=== PATIENT | female | born 1945 | race African-American/Black ===

== ENCOUNTER 2016-10-21 10:49 | Inpatient (IN) | payer OTHER ==
[2016-10-14 17:21] LABS: HEMATOCRIT 37.2 % (36.0-48.0); HEMOGLOBIN 12.2 g/dL (12.0-16.0)
[2016-10-14 17:33] LABS: BUN (BLOOD UREA NITROGEN) 23 MG/DL (6-23); CHLORIDE, SERUM 107 MMOL/L (96-112); CO2 (CARBON DIOXIDE) 28 MMOL/L (24-34); CREATININE 1.56 MG/DL (0.55-1.02); GFR AFRICAN AMERICAN 38 ML/MIN (>=60); GFR NON AFRICAN AMERICAN 33 ML/MIN (>=60); GLUCOSE, SERUM 91 MG/DL (60-99); POTASSIUM, SERUM 3.8 MMOL/L (3.5-5.3); SODIUM, SERUM 138 MMOL/L (135-148)
--- NOTE | ~2016-10-21 | DS ---
Discharge Summary [facility] [address] [place]. [address] NAME: ASHOK PEDRO : 43 STATUS : DIS IN PAT#: [id number] AGE: 71 ADM/REG DATE : 10/21/16 MR#: [id number] REPORT SERV DATE: 11/02/16 DICTATED BY: ELSY DANIELLE DATE: 11/01/16 REPORT STATUS : Draft TRANSCRIBED BY: KASSIDY DATE: 11/01/16 Data Collection from hospitalization DISCHARGE DIAGNOSES: 1. Colon cancer. 2. Hypertension. 3. History of abdominal aortic aneurysm. 4. Chronic obstructive pulmonary disease. 5. Gastroesophageal reflux disease. 6. Chronic kidney disease. 7. History of breast cancer. 8. History of stroke. 9. Former smoker. CONSULTATIONS: None. PROCEDURES PERFORMED: Laparoscopic-assisted right hemicolectomy with stapled ileocolic anastomosis on 10/21/2016. PATHOLOGY: Right colon resection including segment of terminal ileum and appendix - adenocarcinoma. MEDICATIONS: Tylenol 1000 mg every six hours, Norvasc 10 mg daily, Lipitor 20 mg daily, Dulcolax 10 mg at bedtime, Pepcid 40 mg daily, HydroDIURIL 25 mg daily, levothyroxine 150 mcg daily, Zestril 40 mg daily, Lopressor 50 mg daily, Percocet 5/325 one tablet every four hours as needed, Klor-Con 10 mEq daily, and Diovan 320 mg daily. CONDITION AT DISCHARGE: Stable. DISPOSITION: The patient was discharged home on a regular diet with activities as instructed. She would follow up with me on 11/11/2016. HOSPITAL COURSE: This is a 71-year-old female who had undergone a colonoscopy and was found to have a large 2.5 cm cecal mass with biopsy-proven cancer. Treatment options were discussed and it was elected to proceed with surgical intervention. She was admitted to the hospital at this time for further evaluation and treatment. Upon admission, she was taken to the operating room where she underwent the above-mentioned procedure. She tolerated this well, and there were no complications. On postop day #1, her abdomen was soft. The Zurita catheter was going to be removed. She did have some nausea overnight. On 10/23/2016, she seemed to be feeling better. She was ambulating and voiding. 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 Her diet was advanced. We encouraged her to ambulate and use pulmonary toilet. Discharge planning was performed. On 10/24/2016, she did have a bowel movement. She was passing flatus. She was ambulatory. Discharge instructions were given. Due to her improved and stable condition, she was discharged home with the above- stated instructions. Information collected by: Arabella Carvalho Discharge Summary [address] [address] NAME: ASHOK PEDRO : 43 STATUS : DIS IN PAT#: [id number] AGE: 71 ADM/REG DATE : 10/21/16 MR#: [id number] REPORT SERV DATE: 11/02/16 DICTATED BY: ELSY DANIELLE DATE: 11/01/16 REPORT STATUS : Draft TRANSCRIBED BY: KASSIDY DATE: 11/01/16 I submit the above information as my discharge summary. DIEGO/KASSIDY Renate Danielle M.D. / [id number] CC: Ivis Dietz M.D.
--- NOTE | ~2016-10-21 | OP ---
Record Of Operation [facility] [address] [place]. [address] NAME: ASHOK PEDRO : 43 STATUS : ADM IN PAT#: [id number] AGE: 71 ADM/REG DATE : 10/21/16 MR#: [id number] REPORT SERV DATE: 10/22/16 DICTATED BY: ELSY DANIELLE DATE: 10/22/16 REPORT STATUS : Draft TRANSCRIBED BY: MODL DATE: 10/22/16 DATE OF PROCEDURE: 10/21/2016 RESIDENT: Malik Harris MD PREOPERATIVE DIAGNOSIS: Cecal cancer. POSTOPERATIVE DIAGNOSIS: Cecal cancer. PROCEDURE: Laparoscopic-assisted right hemicolectomy with stapled ileocolic anastomosis. ANESTHESIA: General with TAP blocks. FLUIDS: Approximately 1500 of crystalloid. BLOOD LOSS: Approximately 20 mL. INDICATION FOR PROCEDURE: This is a 71-year-old female, who underwent colonoscopy and was found to have a large 2.5 cm cecal mass with biopsy-proven cancer. As psychiatric workup was negative, surgery was indicated. Risks, benefits, and alternatives were discussed at length with the patient, including bleeding, infection, and damage to surrounding structures. The patient wishes to proceed. DESCRIPTION OF PROCEDURE: After informed consent was obtained, the patient was brought back to the operating suite and placed in the supine position. The patient was prepped and draped in a normal sterile fashion after general endotracheal anesthesia. Time-out was performed, the patient was properly identified, preoperative antibiotics were given. A 1.2 cm umbilical incision was made. Blunt dissection was carried down to the fascia. There was a small fascial defect near the umbilicus, a Yesika clamp was placed in the abdomen. The abdomen was then entered bluntly. A 12 mm trocar was then placed within that and that was insufflated. The patient tolerated the insufflation well. The laparoscope was then placed within the trocar. There was no damage to bowel or bladder. Three more trocars were placed, one in the left upper quadrant, one in the right upper quadrant, and one in the lower quadrant in the midline; these were all 5 mm trocars; these were all done under direct visualization. The patient was then placed in steep Trendelenburg with left side down. The cecum was then mobilized from its peritoneal and retroperitoneal attachments, starting at the base of the cecum and the ileocolic valve. This dissection was done with scissors with electrocautery. The cecum was mobilized cranially, staying in the plane above the duodenum. This was done all the way to the peritoneal reflection and the white line of Toldt all the way up to the hepatic flexure. Once this was adequately mobilized staying above the kidney and duodenum, the patient was placed in reverse Trendelenburg and with the scissors with electrocautery, the hepatic flexure was taken down sharply. Once the hepatic flexure was clearly mobilized down above the duodenum and there was a good length, the patient was then placed back in Trendelenburg and the cecum was elevated, and the ileocolic vessels were identified. The ileocolic vessels were dissected out and doubly clipped and divided with a 10 mm clips. In order to do this, a 5 mm camera was placed in the lateral port. Once the Record Of Operation [facility] [address] [facility] [place]. [address] NAME: ASHOK PEDRO : 43 STATUS : ADM IN [facility]#: [id number] AGE: 71 ADM/REG DATE : 10/21/16 MR#: [id number] REPORT SERV DATE: 10/22/16 DICTATED BY: ELSY DANIELLE DATE: 10/22/16 REPORT STATUS : Draft TRANSCRIBED BY: MODL DATE: 10/22/16 ileocolic vessels were doubly clipped and divided, the cecum was grasped, all the trocars were removed, insufflation was removed, and the umbilical incision was extended cranially approximately 4 cm. The cecum was brought out through the small incision with a wound protector in place. The ileum was measured 10 cm distal from the ileocecal valve and divided with the TY 60 stapler after a window was created in the mesentery. Once this was divided, the right colon was brought into the field and divided 10 cm distal to the presumed mass location. This was done with a TY 60 stapler. The mesentery was doubly clamped and divided. Hemostasis was obtained. A duka-ml-ewmk stapled anastomosis was then performed with the antimesenteric to antimesenteric border along the tinea of the colon. The common enterotomy was closed with a TY 60 stapler. The convergence of the staple lines was oversewn with a 3-0 silk. Crotch stitch was placed with a 3-0 silk. The anastomosis was patent. Hemostasis was obtained. The new ileocolic anastomosis was placed back within the abdomen. The abdomen was visualized, and all free fluid was suctioned. The midline incision was closed with a running #1 PDS, and the skin was closed with one 3-0 Monocryl. The remaining incisions were closed with 3-0 Vicryl. A sterile dressing was applied. The patient tolerated the procedure well and was transferred to recovery room in stable condition. DICTATED BY: Malik Harris MD CB/ESTEFANIAL Renate Danielle M.D. / [id number] CC: Ivis Dietz M.D.
[~2016-10-21 10:49] MED LIST: DIOVAN320 MG PO; HCTZ25B PO; KLOR-CON 1010 MEQ PO; LEVOTHYROXIN150 MCG PO; LIPITOR20 PO; LOP50 PO; NORV10 PO; PEPCID40 MG PO; ZESTRIL40 MG PO
[2016-10-22 06:42] LABS: BASOPHILS 0 %; EOSINOPHILS 0 %; HEMOGLOBIN 12.5 g/dL (12.0-16.0); IMMATURE GRANULOCYTES 0.4 %; IMMATURE GRANULOCYTES ABSOLUTE 0.05 10/3/uL (0.0-0.11); LYMPHOCYTES ABSOLUTE 1.13 10/3/uL (0.67-4.30); MEAN CORPUS HGB CONC 33.8 g/dL (32.0-36.0); MEAN CORPUSCULAR HEMOGLOB 26.4 pg (26.0-34.0); MEAN CORPUSCULAR VOLUME 78.1 fL (80-100); MEAN PLATELET VOLUME 10.4 fL (9.2-13.0); MONOCYTES 7.2 %; MONOCYTES ABSOLUTE 0.91 10/3/uL (0.21-1.20); NEUTROPHILS 83.4 %; NEUTROPHILS ABSOLUTE 10.51 10/3/uL (2.02-8.40); PLATELET COUNT 263 10/3/uL (150-400); RBC DISTRIBUTION WIDTH 13.7 % (12.0-16.0); RED CELL COUNT 4.74 10/6/uL (4.0-5.6); WHITE BLOOD CELLS 12.6 10/3/uL (4.5-10.5)
[2016-10-22 06:43] LABS: MANUAL DIFF NO %
[2016-10-22 06:52] LABS: CO2 (CARBON DIOXIDE) 26 MMOL/L (24-34); CREATININE 1.25 MG/DL (0.55-1.02); GFR AFRICAN AMERICAN 50 ML/MIN (>=60); GFR NON AFRICAN AMERICAN 43 ML/MIN (>=60); POTASSIUM, SERUM 3.8 MMOL/L (3.5-5.3)
[2016-10-22 06:53] LABS: BUN (BLOOD UREA NITROGEN) 14 MG/DL (6-23); CHLORIDE, SERUM 96 MMOL/L (96-112); GLUCOSE, SERUM 195 MG/DL (60-99); SODIUM, SERUM 131 MMOL/L (135-148)
[2016-10-24] MEDS ORDERED: ACET500CAP PO (08:14)
[2016-10-24] MEDS ORDERED: BIST PO (08:15)
[2016-10-24] MEDS ORDERED: PCET PO (08:18)
== END 2016-10-24 12:14 | disposition home or self-care (01) | DRG 331 ==
LOC: SDC/OF 10:49 → 5SO 20:05
PROVIDERS: Colon & Rectal Surgery
PROC: 3E0T3CZ (ICD-10-PCS; 2016-10-21)
PROC: 0DTF4ZZ Resection of Right Large Intestine, Percutaneous Endoscopic Approach (ICD-10-PCS; principal; 2016-10-21 12:45)
DX: C18.0 Malignant neoplasm of cecum (principal); J44.9 Chronic obstructive pulmonary disease, unspecified; I12.9 Hypertensive chronic kidney disease with stage 1 through stage 4 chronic kidney disease, or unspecified chronic kidney disease; N18.9 Chronic kidney disease, unspecified; E03.9 Hypothyroidism, unspecified; Z79.899 Other long term (current) drug therapy; Z87.891 Personal history of nicotine dependence; Z85.3 Personal history of malignant neoplasm of breast; Z86.73 Personal history of transient ischemic attack (TIA), and cerebral infarction without residual deficits; Z80.1 Family history of malignant neoplasm of trachea, bronchus and lung; Z82.3 Family history of stroke; Z82.49 Family history of ischemic heart disease and other diseases of the circulatory system; Z80.0 Family history of malignant neoplasm of digestive organs
CPT/HCPCS: 80048; 82378; 85014; 85018; 85025; 88309; 88313; 88341; 88342; 93005; A9270-GY; J0690; J2250; J2370; J2405; J2710; J3010

== ENCOUNTER 2016-10-25 16:13 | Emergency (ER) | payer OTHER ==
[~2016-10-25 16:13] MED LIST changes: +ACET500CAP PO; +BIST PO; +PCET PO
== END 2016-10-25 18:25 | disposition home or self-care (01) ==
LOC: ER 16:13
DX: S39.012A Strain of muscle, fascia and tendon of lower back, initial encounter (principal); M54.16 Radiculopathy, lumbar region; I10 Essential (primary) hypertension; Z85.3 Personal history of malignant neoplasm of breast; Z90.12 Acquired absence of left breast and nipple; Z79.899 Other long term (current) drug therapy
CPT/HCPCS: 72100; 96372; 99283; J1170